=== PATIENT | male | born 1950 | race Caucasian/White ===

== ENCOUNTER 2019-05-13 13:12 | Inpatient (IN) | payer OTHER ==
[~2019-05-13] VITALS: Ht 157.5 cm; Wt 64.6 kg
[~2019-05-13 13:12] MED LIST: ASPI81 PO; LISI-661 PO; METO-558 PO; MULT-1259 PO; OMEG-11 PO; OMEP20 PO; SIMV-259 PO; TERA2CAP10 PO; TERA5CAP12 PO
[2019-05-13 14:26] LABS: BASOPHILS % (AUTO) 0.8 % (0.0-2.0); EOSINOPHILS % (AUTO) 7.2 % (1.0-6.0); HEMOGLOBIN 14.3 g/dL (13.5-17.5); LYMPHOCYTES # (AUTO) 1.9 K/uL (1.0-4.8); LYMPHOCYTES % (AUTO) 30.9 % (22.0-44.0); MEAN CORPUSCULAR HEMOGLOBIN 31.7 pg (26.0-34.0); MEAN CORPUSCULAR HGB CONC 33.2 G/dL (31.0-37.0); MEAN CORPUSCULAR VOLUME 95 fL (80-100); MONOCYTES # (AUTO) 0.6 K/uL (0.1-1.0); MONOCYTES % (AUTO) 9.7 % (2.0-9.0); NEUTROPHILS # (AUTO) 3.2 K/uL (1.8-7.7); NEUTROPHILS % (AUTO) 51.4 % (40.0-70.0); PLATELET COUNT (AUTO) 208 K/uL (150-450); RED BLOOD CELL COUNT(AUTO) 4.51 MIL/uL (4.50-5.90); RED CELL DISTRIBUTION WIDTH 13.8 % (11.5-14.5)
[2019-05-13 14:36] LABS: CALCIUM, TOTAL 9.6 mg/dL (8.8-10.5); CREATININE 1.27 mg/dL (0.60-1.30); POTASSIUM 3.8 mmol/L (3.5-5.1)
[2019-05-13 14:41] LABS: ALBUMIN 4.1 g/dL (3.4-5.0); BILIRUBIN,TOTAL 0.3 mg/dL (0.1-1.0); TOTAL PROTEIN, SERUM 7.7 g/dL (6.4-8.2)
[2019-05-13] MEDS ORDERED: NITROGLYCERIN 2% (1 GM=INCH) PACKET TP ONE (15:00)
[2019-05-13] MEDS ORDERED: ACETAMINOPHEN 325 MG TABLET PO PRN (15:30)
[2019-05-13] MEDS ORDERED: ONDANSETRON HCL 4 MG/2 ML VIAL IVP PRN (15:30)
[2019-05-13] MEDS ORDERED: MAGNESIUM HYDROXIDE SUSPENSION 30 ML UDCUP PO PRN (15:30)
[2019-05-13] MEDS ORDERED: BISACODYL 10 MG RECTAL RECTAL SUPPOSITORY PR PRN (15:30)
[2019-05-13] MEDS ORDERED: MORPHINE SULFATE 2 MG/ML SYRINGE IVP PRN (15:30)
[2019-05-13] MEDS ORDERED: HYDROCODONE/ACETAMINOPHEN 5-325 MG TABLET PO PRN (15:30)
[2019-05-13] MEDS ORDERED: ZOLPIDEM TARTRATE 5 MG TABLET PO PRN (15:30)
[2019-05-13] MEDS: NITROGLYCERIN 2% (1 GM=INCH) PACKET TP SCH ×2 (15:56→23:04)
[2019-05-13] MEDS ORDERED: HEPARIN SODIUM,PORCINE 5,000 UNITS/ML VIAL SQ SCH (16:00)
[2019-05-13 18:23] VITALS: BP 127/68
[2019-05-13 20:11] VITALS: BP 108/56
[2019-05-13] MEDS ORDERED: SIMVASTATIN 10 MG TABLET PO SCH (21:00)
[2019-05-13] MEDS ORDERED: TERAZOSIN HCL 1 MG CAPSULE PO SCH (21:00)
[2019-05-13] MEDS: RANOLAZINE 500 MG ER TABLET PO SCH (21:14)
[2019-05-13] MEDS: DOCUSATE SODIUM 100 MG CAPSULE PO SCH (21:14)
[2019-05-13] MEDS: TICAGRELOR 60 MG TABLET PO SCH (21:14)
[2019-05-14 00:07] VITALS: BP 96/60
[2019-05-14 05:01] VITALS: BP 96/62
[2019-05-14 07:08] LABS: BASOPHILS % (AUTO) 0.5 % (0.0-2.0); EOSINOPHILS % (AUTO) 8.1 % (1.0-6.0); HEMATOCRIT 38.9 % (41-53); HEMOGLOBIN 13.2 g/dL (13.5-17.5); LYMPHOCYTES % (AUTO) 27.3 % (22.0-44.0); MEAN CORPUSCULAR HEMOGLOBIN 32.2 pg (26.0-34.0); MEAN CORPUSCULAR HGB CONC 33.8 G/dL (31.0-37.0); MEAN CORPUSCULAR VOLUME 95 fL (80-100); MONOCYTES # (AUTO) 0.6 K/uL (0.1-1.0); MONOCYTES % (AUTO) 8.5 % (2.0-9.0); NEUTROPHILS # (AUTO) 4.1 K/uL (1.8-7.7); NEUTROPHILS % (AUTO) 55.6 % (40.0-70.0); PLATELET COUNT (AUTO) 194 K/uL (150-450); RED BLOOD CELL COUNT(AUTO) 4.09 MIL/uL (4.50-5.90); RED CELL DISTRIBUTION WIDTH 13.6 % (11.5-14.5)
[2019-05-14 07:12] LABS: CALCIUM, TOTAL 8.9 mg/dL (8.8-10.5); CHOL/HDL RATIO 2.1 (4.2-7.3); CREATININE 1.43 mg/dL (0.60-1.30); POTASSIUM 3.7 mmol/L (3.5-5.1)
[2019-05-14 07:17] VITALS: BP 117/72
[2019-05-14] MEDS: TICAGRELOR 60 MG TABLET PO SCH (08:02)
[2019-05-14] MEDS: RANOLAZINE 500 MG ER TABLET PO SCH (08:02)
[2019-05-14] MEDS: NITROGLYCERIN 2% (1 GM=INCH) PACKET TP SCH (08:03)
[2019-05-14] MEDS: DOCUSATE SODIUM 100 MG CAPSULE PO SCH (08:03)
[2019-05-14] MEDS ORDERED: ASPIRIN 81 MG CHEWABLE TABLET PO SCH ×2 (09:00)
[2019-05-14] MEDS ORDERED: LISINOPRIL 10 MG TABLET PO SCH (09:00)
[2019-05-14] MEDS ORDERED: METOPROLOL SUCCINATE 50 MG ER TABLET PO SCH (09:00)
[2019-05-14] MEDS ORDERED: PANTOPRAZOLE SODIUM 40 MG DR TABLET PO SCH (09:00)
[2019-05-14 11:15] VITALS: BP 137/70
[2019-05-14] MEDS ORDERED: RANO500T3 PO (12:36)
[2019-05-14] MEDS ORDERED: SIMV-259 PO (12:36)
[2019-05-14] MEDS ORDERED: TICA60TA PO (12:38)
== END 2019-05-14 13:05 | disposition home or self-care (01) | DRG 303 ==
LOC: EMS 13:13 → 5S 16:37
PROVIDERS: ADMIT Internal Medicine; ATTEND Internal Medicine
DX: I25.110 Atherosclerotic heart disease of native coronary artery with unstable angina pectoris (principal); I10 Essential (primary) hypertension; E78.5 Hyperlipidemia, unspecified; K21.9 Gastro-esophageal reflux disease without esophagitis; N40.0 Benign prostatic hyperplasia without lower urinary tract symptoms; E78.00 Pure hypercholesterolemia, unspecified; Z95.5 Presence of coronary angioplasty implant and graft
CPT/HCPCS: 93005; 93306; J1644

== ENCOUNTER 2020-08-17 07:06 | Day surgery (SDC) | payer OTHER ==
[2020-08-15 13:21] LABS: COVID AG,FIA SOURCE NASOPHARYNGEAL
[~2020-08-17] VITALS: Ht 157.5 cm; Wt 63.6 kg
[~2020-08-17 07:06] MED LIST changes: +ASCO500T96 PO; +ASPI-728 PO; -ASPI81 PO; +BUDE10.2 IH; +DUTA1CPM4 PO; +FAMO40TA7 PO; +FLUT16H NASAL; +FURO20TA4 PO; -LISI-661 PO; +LORA10TA7 PO; +LOSA25TA21 PO; +MONT10TA97 PO; +RANO500T3 PO; +SODIUM CHLORIDE 0.9% 1,000 ML IV ONE; +SODIUM CHLORIDE 0.9% 1,000 ML ONE; -TERA2CAP10 PO; -TERA5CAP12 PO; +TICA60TA PO
[2020-08-17] MEDS ORDERED: LIDOCAINE 2% 30 ML JELLY TP ONE (07:07)
[2020-08-17] MEDS ORDERED: BENZOCAINE 20% 50 MCG/SPRAY 57 GM TP ONE (07:07)
[2020-08-17] MEDS ORDERED: LIDOCAINE 4% 50 ML SOLUTION TP ONE (07:07)
[2020-08-17] MEDS ORDERED: FentaNYL CITRATE PF 100 MCG/2 ML VIAL ONE (08:08)
[2020-08-17] MEDS ORDERED: MIDAZOLAM HCL 2 MG/2 ML VIAL ONE (08:08)
[2020-08-17] MEDS ORDERED: MethylPREDNISolone SOD SUCC 125 MG/2 ML VIAL IVP ONE (09:00)
[2020-08-17] MEDS ORDERED: MethylPREDNISolone SOD SUCC 125 MG/2 ML VIAL ONE (09:34)
[2020-08-17] MEDS ORDERED: OXYGEN THERAPY IH SCH (20:00)
== END 2020-08-17 11:25 | disposition home or self-care (01) ==
LOC: SURGERY 07:06
PROVIDERS: ATTEND Internal Medicine Critical Care Medicine
DX: J38.4 Edema of larynx (principal); B37.0 Candidal stomatitis; I10 Essential (primary) hypertension; Z91.012 Allergy to eggs; I25.10 Atherosclerotic heart disease of native coronary artery without angina pectoris; K21.9 Gastro-esophageal reflux disease without esophagitis; E78.00 Pure hypercholesterolemia, unspecified; Z98.890 Other specified postprocedural states
CPT/HCPCS: 31623; 31624; 71045; 87015; 87070; 87101; 87205; 87206; 87220; 87426; 88108; 88184; 88185; 88312; 93005; C9803; J2250; J2930; J3010; J7030; Z7610

== ENCOUNTER 2025-04-03 05:35 | Day surgery (SDC) | payer OTHER ==
[~2025-04-03] VITALS: Ht 157.5 cm; Wt 66.4 kg
[~2025-04-03 05:35] MED LIST changes: +AMLO5TAB66 PO; -ASCO500T96 PO; +ASPI-1450 PO; -ASPI-728 PO; +EMPA25TA3 PO; -FLUT16H NASAL; +FLUT16SP NASAL; -LOSA25TA21 PO; +METO-325 PO; -METO-558 PO; +MONT-40 PO; -MONT10TA97 PO; +OMEP-148 PO; -OMEP20 PO; +RANO500T27 PO; -RANO500T3 PO; +RIVA2.5T3 PO; +ROSU40TA88 PO; -SIMV-259 PO; -SODIUM CHLORIDE 0.9% 1,000 ML IV ONE; -SODIUM CHLORIDE 0.9% 1,000 ML ONE; -TICA60TA PO; +[UNRECOGNIZED DRUG - CODE] PO
[2025-04-03] MEDS ORDERED: SODIUM CHLORIDE 0.9% 1,000 ML ONE (06:38)
[2025-04-03] MEDS: SODIUM CHLORIDE 0.9% 1,000 ML IV ONE (07:09)
[2025-04-03] MEDS ORDERED: FentaNYL CITRATE PF 100 MCG/2 ML VIAL ONE (08:11)
[2025-04-03] MEDS ORDERED: MIDAZOLAM HCL 2 MG/2 ML VIAL ONE (08:12)
[2025-04-03 08:21] LABS: GLUCOMETER DEV NAME(LOC) SDS.; GLUCOSE,POINT OF CARE 99 MG/DL (70-110)
[2025-04-03 09:15] VITALS: PULSE 61; RESP 18; O2SAT 100
[2025-04-03] MEDS ORDERED: LIDOCAINE 2% 11 ML JELLY ONE (12:00)
[2025-04-03] MEDS ORDERED: BENZOCAINE 20% 50 MCG/SPRAY 57 GM ONE (12:00)
[2025-04-03] MEDS ORDERED: LIDOCAINE 4% 50 ML SOLUTION ONE (12:00)
== END 2025-04-03 13:55 | disposition home or self-care (01) ==
LOC: SDS 05:35
PROVIDERS: ATTEND Internal Medicine Critical Care Medicine
DX: R05.3 Chronic cough (principal); J38.4 Edema of larynx; B37.0 Candidal stomatitis; G47.30 Sleep apnea, unspecified; I10 Essential (primary) hypertension; K21.9 Gastro-esophageal reflux disease without esophagitis; E78.00 Pure hypercholesterolemia, unspecified; I25.10 Atherosclerotic heart disease of native coronary artery without angina pectoris; Z79.899 Other long term (current) drug therapy; Z98.890 Other specified postprocedural states; Z95.5 Presence of coronary angioplasty implant and graft
CPT/HCPCS: 31623; 93005; 82962; 87206; 87101; 87220; 87070; 88108; 31624; 94760; 71045; 87015; J3010; J2250; J2919; J7030; Z7610